=== PATIENT | female | born 1995 ===

== ENCOUNTER 2017-02-15 17:28 | Emergency (ER) | payer MEDICAID ==
[2017-02-15 17:44] VITALS: BP 141/90; PULSE 67; RESP 16; TEMP 98.2; O2SAT 100
--- NOTE | 2017-02-15 18:08 | ED PDOC ---
HPI: Dental Pain/Injury Time Seen by Provider: 02/15/17 17:48 Chief Complaint (Nursing): Dental Pain Chief Complaint (Provider): dental pain History Per: Patient Additional Complaint(s): 21-year-old female with no past medical history presents to emergency department with right lower molar toothache 2 days. Tylenol has not provided adequate pain relief. Patient denies fever or chills. She states she does not have a dentist so she came to the emergency department today. She rates current pain as 7 out of 10. Past Medical History Reviewed: Historical Data, Nursing Documentation, Vital Signs Vital Signs: Last Vital Signs Temp 98.2 F 02/15/17 17:41 Pulse 67 02/15/17 17:41 Resp 16 02/15/17 17:41 BP 141/90 02/15/17 17:41 Pulse Ox 100 02/15/17 17:41 - Medical History PMH: No Chronic Diseases - Surgical History Surgical History: No Surg Hx - Family History Family History: States: No Known Family Hx - Living Arrangements Living Arrangements: With Family - Social History Current smoker - smoking cessation education provided: No Alcohol: None Drugs: Denies - Home Medications Home Medications: Ambulatory Orders Medication Instructions Recorded Amoxicillin 875 mg PO BID #14 tab 02/15/17 Ibuprofen [Motrin Tab] 800 mg PO Q8 PRN #20 tab 02/15/17 - Allergies Allergies/Adverse Reactions: Allergies Allergy/AdvReac Type Severity Reaction Status Date / Time No Known Allergies Allergy Verified 02/15/17 17:41 Review of Systems ROS Statement: Except As Marked, All Systems Reviewed And Found Negative Constitutional: Negative for: Fever ENT: Positive for: Other (dental pain) Neurological: Negative for: Headache, Dizziness Physical Exam - Reviewed Nursing Documentation Reviewed: Yes Vital Signs Reviewed: Yes - Physical Exam Appears: Positive for: Well, Non-toxic, No Acute Distress Head Exam: Positive for: ATRAUMATIC, NORMAL INSPECTION Skin: Negative for: Rash Eye Exam: Positive for: Normal appearance ENT: Positive for: Other (Overall dentition intact, tenderness to right lower wisdom tooth is noted with mild surrounding gingival swelling, no abscess, no facial swelling, airway patent, uvula midline) Cardiovascular/Chest: Positive for: Regular Rate, Rhythm Respiratory: Positive for: Normal Breath Sounds Neurologic/Psych: Positive for: Alert, Oriented - Laboratory Results Urine POC: Negative - ECG O2 Sat by Pulse Oximetry: 100 Pulse Ox Interpretation: Normal Medical Decision Making Medical Decision Making: Impression: Dental pain Plan: test PO motrin Patient was given rx motrin and amoxicillin and was advised to follow up PAMELA with dentist. Disposition - Clinical Impression Clinical Impression: Pain, dental - Patient ED Disposition Is Patient to be Admitted: No Counseled Patient/Family Regarding: Diagnosis, Need For Followup, Rx Given - Disposition Referrals: [facility] [Outside] Disposition: Routine/Home Disposition Time: 18:29 Condition: STABLE Additional Instructions: Take rx meds as directed. Follow up as soon as possible with dentist. Prescriptions: Amoxicillin 875 mg PO BID #14 tab Ibuprofen [Motrin Tab] 800 mg PO Q8 PRN #20 tab PRN Reason: Pain, Moderate (4-7) Instructions: Toothache (ED) Forms: [facility] (Serbian) Print Language: SAMOAN
== END 2017-02-15 19:27 | disposition home or self-care (01) ==
LOC: H.ER 17:28
DX: K08.89 Other specified disorders of teeth and supporting structures (principal)